=== PATIENT | female | born 1940 | race Caucasian/White ===

== ENCOUNTER 2018-08-24 17:34 | Inpatient (IN) ==
--- NOTE | 2018-08-24 17:56 | Emergency Department Note ---
Disposition Clinical Impression: Atrial fibrillation Qualifiers: Atrial fibrillation type: persistent Qualified Code(s): I48.1 - Persistent atrial fibrillation Disposition: Admitted As Inpatient Condition: Fair Referrals: Miranda Escobar MD [Primary Care Provider] - Forms: ED Satisfaction Letter Time of Disposition: 19:57 Arrhythmia/Palpitations HPI - General Chief Complaint: ED Arrhythmia/Palpitations Stated Complaint: atrial fib with rvr Time Seen by Provider: 08/24/18 17:44 Source: patient Mode of arrival: private vehicle Limitations: no limitations Nursing Notes Reviewed: Yes Vital Signs Reviewed: Yes - History of Present Illness HPI Narrative: Patient went to the urgent care because she had been feeling a little run down for the past several days. She noticed dyspnea with exertion but no shortness of breath at rest or when being supine. Shortly urgent care because it was again any better and they identified her as being atrial fibrillation. She denies noting any rapid heartbeat feeling or irregular heartbeat feeling. She denies any associated chest pain. Pt Subjective Complaint: rapid heart beat Onset (ago): day(s) (Several days) Duration: constant Context: occurred during rest Associated symptoms: Reports: shortness of breath (But only with exertion) Treatments prior to arrival: other (Seen at the urgent care and transferred here.) - Related Data Home Medications Medication Instructions Recorded Confirmed Estrogens,Esterified [Menest] 1.25 mg PO DAILY 08/24/18 08/24/18 Fluticasone Propionate Nasal 2 NS DAILY 08/24/18 [Flonase] Lisinopril [Zestril] 20 mg PO DAILY 08/24/18 08/24/18 Metoprolol Tartrate [Lopressor] 25 mg PO 08/24/18 Montelukast Sodium [Singulair] 10 mg PO DAILY 08/24/18 08/24/18 Potassium Chloride [Klor-Con] 20 meq PO 08/24/18 hydroCHLOROthiazide 25 mg PO DAILY 08/24/18 08/24/18 [Hydrochlorothiazide] Allergies Allergy/AdvReac Type Severity Reaction Status Date / Time No Known Allergies Allergy Verified 08/24/18 17:37 All systems ED: reviewed and negative except as stated. Constitutional: Denies: fever, chills ENT ED: Reports: congestion. Denies: ear pain, throat pain Cardiovascular: Reports: dyspnea on exertion. Denies: chest pain, palpitations, orthopnea, edema Respiratory: Denies: cough, wheezes Gastrointestinal: Denies: abdominal pain, nausea, vomiting Neurological: Denies: headache Past Medical History - Past Medical History Attestation: Yes The following information was validated with the patient. Source: patient, old records reviewed, nursing notes reviewed Medical history: Reports: hyperlipidemia, hypertension, renal disease, valvular heart disease Psychiatric history: Reports: no psych history - Social History Smoking Status: Never smoker Smokeless Tobacco Status: No Alcohol use: Reports: none, rarely Drug use: Reports: none Physical Exam - General Limitations: no limitations General appearance: alert, in no apparent distress - Head Head exam: atraumatic, normocephalic, normal inspection - Eye Eye exam: Present: normal appearance, PERRL, EOMI. Absent: scleral icterus, conjunctival injection - ENT ENT exam: normal exam, normal oropharynx, mucous membranes moist, TM's normal bilaterally, normal external ear exam - Neck Neck exam: Present: normal inspection, full ROM, trachea midline. Absent: meningismus - Chest Chest inspection: Present: normal inspection, symmetric chest wall rise. Absent: tenderness - Respiratory Respiratory exam: Present: normal lung sounds bilaterally. Absent: respiratory distress, wheezes - Cardiovascular Cardiovascular exam: Present: tachycardia, irregular rhythm. Absent: systolic murmur, diastolic murmur - Abdominal Exam Abdominal exam: Present: soft, Non-Tender, normal bowel sounds - Extremities Exam Extremities exam: Present: normal inspection. Absent: pedal edema - Neurological Exam Neurological exam: Present: alert, oriented X3 - Psychiatric Psychiatric exam: Present: normal affect, normal mood - Skin Skin exam: Present: warm, dry. Absent: rash Course Course Narrative: Patient presents with dyspnea on exertion and feeling rundown for couple of days. Found to be in atrial fibrillation with rapid ventricular response. We will get a workup going. We will start the Cardizem. Disposition will be based on diagnostic results and reevaluation. - Reevaluation(s) Reevaluation #1: Patient was given 2 boluses of Cardizem and is on a drip of 5 mg per hour. Heart rate is 99. Still in atrial fibrillation. Labs look good. I spoke with the hospitalist, Dr. Johnson. He recommended a dose of Xarelto and admit her to the floor maintaining the drip at 5. Patient is comfortable with the plan. Time: 19:56 Vital Signs Temperature 98.5 F 08/24/18 17:38 Pulse Rate 143 08/24/18 17:38 Respiratory Rate 19 08/24/18 17:38 Blood Pressure 140/93 08/24/18 17:38 O2 Sat by Pulse Oximetry 95 08/24/18 17:38 Temperature 98.5 F 08/24/18 17:38 Pulse Rate 72 08/24/18 19:54 Respiratory Rate 16 08/24/18 19:54 Blood Pressure 170/102 08/24/18 19:54 O2 Sat by Pulse Oximetry 97 08/24/18 19:54 Oxygen Delivery Oxygen Delivery Room Air Arrhythmia/Palpitations - Medical Records Medical records reviewed: Yes I reviewed the patient's medical records. - Lab Data Lab results reviewed: Yes I reviewed the patient's lab results. Result diagrams: 08/24/18 17:59 08/24/18 17:59 Lab Results 08/24/18 08/24/18 08/24/18 Range/Units 17:59 17:59 17:59 WBC 7.5 (4.3-11.1) K/mcL RBC 3.72 L (3.82-4.97) M/mcL Hgb 11.7 (11.5-15.4) g/dL Hct 35.5 (35.3-44.9) % MCV 95.4 (83.0-100.0) fL MCH 31.5 (28.0-33.3) pg MCHC 33.0 (31.6-35.5) g/dL RDW 14.1 (11.5-14.5) % Plt Count 258 (140-400) K/mcL MPV 10.7 (9.4-12.4) fL Immature Gran % 0.5 (0-4) % Seg Neutrophils % 64.6 % Lymphocytes % 24.0 % Monocytes % 8.3 % Eosinophils % 1.9 % Basophils % 0.7 % Neutrophils # 4.8 (1.6-8.9) K/mcL Lymphocytes # 1.8 (0.6-4.6) K/mcL Monocytes # 0.6 (0.0-1.3) K/mcL Eosinophils # 0.1 (0.0-0.6) K/mcL Basophils # 0.1 (0.0-0.2) K/mcL PT 11.8 (9.4-12.1) Seconds INR 1.0 APTT 32.7 (26.0-36.0) Seconds Sodium 139 (136-145) mEq/L Potassium 3.4 L (3.5-5.1) mEq/L Chloride 101 (98-107) mEq/L Carbon Dioxide 30 H (23-29) mEq/L BUN 37 H (8-23) mg/dL Creatinine 1.49 H (0.60-1.20) mg/dL Est GFR ( Amer) 41 L (> 60) Est GFR (Non-Af Amer) 34 L (> 60) BUN/Creatinine Ratio 25 (6-26) Glucose 130 H (70-105) mg/dL Calculated Osmolality 298 (280-300) Calcium 9.2 (8.6-10.3) mg/dL Troponin I < 0.03 (< 0.04) ng/mL B-Natriuretic Peptide (Less than 100) pg/mL 08/24/18 Range/Units 17:59 WBC (4.3-11.1) K/mcL RBC (3.82-4.97) M/mcL Hgb (11.5-15.4) g/dL Hct (35.3-44.9) % MCV (83.0-100.0) fL MCH (28.0-33.3) pg MCHC (31.6-35.5) g/dL RDW (11.5-14.5) % Plt Count (140-400) K/mcL MPV (9.4-12.4) fL Immature Gran % (0-4) % Seg Neutrophils % % Lymphocytes % % Monocytes % % Eosinophils % % Basophils % % Neutrophils # (1.6-8.9) K/mcL Lymphocytes # (0.6-4.6) K/mcL Monocytes # (0.0-1.3) K/mcL Eosinophils # (0.0-0.6) K/mcL Basophils # (0.0-0.2) K/mcL PT (9.4-12.1) Seconds INR APTT (26.0-36.0) Seconds Sodium (136-145) mEq/L Potassium (3.5-5.1) mEq/L Chloride (98-107) mEq/L Carbon Dioxide (23-29) mEq/L BUN (8-23) mg/dL Creatinine (0.60-1.20) mg/dL Est GFR ( Amer) (> 60) Est GFR (Non-Af Amer) (> 60) BUN/Creatinine Ratio (6-26) Glucose (70-105) mg/dL Calculated Osmolality (280-300) Calcium (8.6-10.3) mg/dL Troponin I (< 0.04) ng/mL B-Natriuretic Peptide 492 H (Less than 100) pg/mL - Radiology Data Radiology results reviewed: Yes I reviewed the patient's radiology results. - EKG Data EKG attestation: Yes I reviewed and interpreted this EKG. EKG results narrative: Twelve-lead EKG performed at 1736 PM. Ordered, reviewed and interpreted by ED physician shows atrial fibrillation at a rate of 152. Normal axis. Reasonable R wave progression across precordium. No obvious acute ischemic changes.
[2018-08-24 18:08] LABS: Basophils # 0.1 K/mcL (0.0-0.2); Basophils % 0.7 %; Eosinophils # 0.1 K/mcL (0.0-0.6); Eosinophils % 1.9 %; Hematocrit 35.5 % (35.3-44.9); Hemoglobin 11.7 g/dL (11.5-15.4); Immature Granulocytes % 0.5 % (0-4); Lymphocytes # 1.8 K/mcL (0.6-4.6); Mean Corpuscular Hemoglobin 31.5 pg (28.0-33.3); Mean Corpuscular Volume 95.4 fL (83.0-100.0); Mean Platelet Volume 10.7 fL (9.4-12.4); Monocytes # 0.6 K/mcL (0.0-1.3); Monocytes % 8.3 %; Neutrophils # 4.8 K/mcL (1.6-8.9); Platelet Count 258 K/mcL (140-400); Red Blood Count 3.72 M/mcL (3.82-4.97); Red Cell Distribution Width 14.1 % (11.5-14.5); Segmented Neutrophils % 64.6 %
[2018-08-24 18:17] LABS: Prothrombin Time 11.8 Seconds (9.4-12.1)
[2018-08-24 18:19] LABS: Activated Partial Thrombo Time 32.7 Seconds (26.0-36.0)
[2018-08-24 18:24] LABS: BUN/Creatinine Ratio 25 (6-26); Blood Urea Nitrogen 37 mg/dL (8-23); Calcium 9.2 mg/dL (8.6-10.3); Carbon Dioxide 30 mEq/L (23-29); Chloride 101 mEq/L (98-107); Glucose 130 mg/dL (70-105); Osmolality,Calculated 298 (280-300); Potassium 3.4 mEq/L (3.5-5.1); Sodium 139 mEq/L (136-145); eGFR For Non-African Americans 34 (> 60)
[2018-08-24 18:28] LABS: Troponin I < 0.03 ng/mL (< 0.04)
[2018-08-24] MEDS ORDERED: *HR* Rivaroxaban 10 MG TABLET PO STA ×2 (19:49→20:59)
[2018-08-24] MEDS ORDERED: Naloxone 0.4 MG/ML INJ IVP PRN (20:59)
[2018-08-24] MEDS: 0.9 % Sodium Chloride 1,000 ML IVC SCH (23:30)
[2018-08-25] MEDS ORDERED: *HR* Digoxin 0.5 MG/2 ML AMPUL IVP ONE (00:56)
[2018-08-25] MEDS ORDERED: hydroCHLOROthiazide 25 MG TABLET PO SCH (09:00)
[2018-08-25] MEDS: Lisinopril 20 MG TABLET PO SCH (09:40)
--- NOTE | 2018-08-25 11:57 | Internal Med History&Physical ---
Date of Encounter: 08/25/18 Time of Encounter: 11:20 Assessment and Plan (1) Atrial fibrillation Current visit: Yes Status: Acute Duration unknown but possibly of recent onset from reported symptoms. Echocardiogram will be done to further evaluate. Metoprolol dose will be increased and Lanoxin will be started. Cardizem drip will be discontinued. Qualifiers: Atrial fibrillation type: unspecified Qualified Code(s): I48.91 - Unspecified atrial fibrillation (2) Hypertension Current visit: Yes Status: Chronic Metoprolol dose will be increased 25 mg twice a day. Continue lisinopril. Continue HCTZ but reduce dose to 12.5 mg daily to avoid electrolyte imbalance. Qualifiers: Hypertension type: essential hypertension Qualified Code(s): I10 - Essential (primary) hypertension (3) Elevated brain natriuretic peptide (BNP) level Current visit: Yes Status: Acute Echocardiogram has been ordered. Increased metoprolol and continue lisinopril and HCTZ as per above. (4) Hypokalemia Current visit: Yes Status: Acute Likely secondary to HCTZ use. Supplemental potassium dose will be increased and HCTZ dose reduced. (5) Azotemia Current visit: Yes Status: Acute Possibly secondary to HCTZ use. Adjust dose as above. Internal Medicine - H&P: HPI Chief complaint: Dyspnea, irregular heart rate Admitted From: Emergency Dept Plans for Post Hospital Care: Home History of present illness: Ms. Raymond is a 78 year old female who was referred to emergency room from a local urgent care after presenting complaining of dyspnea onset approximately 10 days earlier. She denies any chest pain or significant cough. She had a sensation of irregular heartbeat on occasion. When her symptoms did not improve after several days she went to a local urgent care and was found to have atrial fibrillation. She had not had this diagnosis previously. She was directed to the emergency room and was found to have AF with RVR. She was started on IV Cardizem drip and admitted to [facility] floor. Cardiovascular history significant for hypertension. She denies GA heart failure angina DVT or pulmonary embolus. She has not missed any doses of Lopressor recently. Echocardiogram 01/05/2018 showed LVEF of 60% with indeterminate diastolic function. The interventricular septum and posterior wall thickness measurements were 1.20 and 0.94 cm respectively. There was LAE at 4.20 cm. There was mild aortic regurgitation, moderate mitral stenosis, mild mitral regurgitation, and mild tricuspid regurgitation. There was reported mild pulmonary hypertension without estimated RVSP recorded. She reports very rare alcohol consumption with her most recent intake 08/21/2018 of a single drink. She denies known thyroid disease or other unusual illnesses or medication ingestions. Past Med Surg Social Fam HX - Past Medical History Medical history: hyperlipidemia, hypertension, renal disease, valvular heart disease Psychiatric history: no psych history - Past Surgical History Additional surgical history: WISDOM TEETH - Social History Smoking Status: Never smoker Smokeless Tobacco Status: No Alcohol use: none, rarely Drug use: none Internal Medicine - H&P: Meds Estrogens,Esterified [Menest] 1.25 mg PO DAILY 08/24/18 [History] Fluticasone Propionate Nasal [Flonase] 2 NS DAILY 08/24/18 [History] Lisinopril [Zestril] 20 mg PO DAILY 08/24/18 [History] Metoprolol Tartrate [Lopressor] 25 mg PO 08/24/18 [History] Montelukast Sodium [Singulair] 10 mg PO DAILY 08/24/18 [History] Potassium Chloride [Klor-Con] 20 meq PO 08/24/18 [History] hydroCHLOROthiazide [Hydrochlorothiazide] 25 mg PO DAILY 08/24/18 [History] Allergy/AdvReac Type Severity Reaction Status Date / Time No Known Allergies Allergy Verified 08/24/18 17:37 All Systems PM: A 10-system review of systems was performed and is negative for pertinent findings except as documented above in the HPI. Review of systems: Gen.: She states her weight is been stable for several months Cardiovascular: As per history of present illness Respiratory: She is a lifelong nonsmoker and denies chronic lung disease. She has ASHLEY but cannot tolerate CPAP/BiPAP. She uses oxygen at bedtime. GI: She denies disorders of her liver gallbladder or exocrine pancreas : She denies hematuria dysuria or kidney stones Neurologic: She denies large distribution strokes or seizures. Endocrine: She denies diabetes thyroid disease or hyperlipidemia Hematology/oncology: She denies blood disorders cancers or anemia Psychiatric: She denies anxiety depression or other mental health issues [place] skeletal: She has DJD but denies gout or other bone joint or muscle disorders. - Constitutional Vitals: Temp Pulse Resp BP Pulse Ox 97.5 F L 97 18 143/83 98 08/25/18 06:35 08/25/18 10:12 08/25/18 06:35 08/25/18 10:12 08/25/18 09:49 Exam: Gen.: She is a well-developed obese female sitting in a recliner chair at bedside who appears in no acute distress HEENT: Head is atraumatic and normocephalic. Eyes: EOMI. There is no scleral icterus. Mouth: Mucosa is moist. Neck: Supple and nontender. There is no thyromegaly or adenopathy noted. Heart: Regular without murmurs gallops or ectopics Lungs: No wheezes or crackles are heard. Abdomen: Soft and nontender. No masses or guarding are noted. Extremities: There is no cyanosis edema or clubbing noted. Dorsalis pedis and posterior tibial pulses are trace to 1+ palpable bilaterally. Neurologic: Mental status: She is talkative and a good historian. Cranial nerves: Smile is symmetric. Forehead wrinkles bilaterally. Tongue protrudes midline. EOMI. Motor: There is no pronator drift. Cerebellar: Finger to nose is intact bilaterally. Skin: Warm and dry Internal Med - H&P Results - Labs CBC & Chem 7: 08/24/18 17:59 08/24/18 17:59 Labs: Short CBC 08/24/18 Range/Units 17:59 WBC 7.5 (4.3-11.1) K/mcL Hgb 11.7 (11.5-15.4) g/dL Hct 35.5 (35.3-44.9) % Plt Count 258 (140-400) K/mcL Neutrophils # 4.8 (1.6-8.9) K/mcL BMP 08/24/18 17:59 Sodium 139 Potassium 3.4 L Chloride 101 Carbon Dioxide 30 H BUN 37 H Creatinine 1.49 H Glucose 130 H Calcium 9.2 Cardiac Enzymes 08/24/18 Range/Units 17:59 Troponin I < 0.03 (< 0.04) ng/mL
[2018-08-25] MEDS: 0.9 % Sodium Chloride 1,000 ML IVC SCH (12:02)
[2018-08-25] MEDS: *HR* Digoxin 0.25 MG TABLET PO SCH (12:05)
[2018-08-25] MEDS: Apixaban 5 MG TABLET PO SCH (22:06)
[2018-08-26 06:31] LABS: Albumin 3.5 g/dL (3.5-5.7); Albumin/Globulin Ratio 1.3 (1.1-2.2); Bilirubin,Total 0.5 mg/dL (0.3-1.0); Calcium 8.6 mg/dL (8.6-10.3); Globulin 2.6 g/dL (2.4-3.5); Total Protein 6.1 g/dL (6.4-8.9)
[2018-08-26 06:43] LABS: Thyroid Stimulating Hormone 3.178 mcIU/mL (0.340-5.600)
[2018-08-26] MEDS ORDERED: hydroCHLOROthiazide 25 MG TABLET PO SCH (09:00)
[2018-08-26] MEDS: Apixaban 5 MG TABLET PO SCH ×2 (09:11→20:24)
[2018-08-26] MEDS: *HR* Digoxin 0.25 MG TABLET PO SCH (09:11)
[2018-08-26] MEDS: Lisinopril 20 MG TABLET PO SCH (09:11)
--- NOTE | 2018-08-26 09:39 | Electrocardiograph Report ---
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
--- NOTE | 2018-08-26 10:12 | Internal Med Progress Note ---
Date of Encounter: 08/26/18 Time of Encounter: 10:05 - Assessment and plan (1) Atrial fibrillation Current Visit: Yes Status: Acute Assessment and plan: August 26. Telemetry shows periodic slow conduction with persistent AF. Discon tinue Lanoxin and increase metoprolol. Qualifiers: Atrial fibrillation type: unspecified Qualified Code(s): I48.91 - Unspecified atrial fibrillation (2) Hypertension Current Visit: Yes Status: Chronic Assessment and plan: August 26. Increase metoprolol to 50 mg twice a day. Discontinue lisinopril, HCTZ, and KCl. Qualifiers: Hypertension type: essential hypertension Qualified Code(s): I10 - Essential (primary) hypertension (3) Elevated brain natriuretic peptide (BNP) level Current Visit: Yes Status: Acute Assessment and plan: August 26. Increase metoprolol as per above. Recheck BN peptide in a.m. She has Lasix at home that she uses prn. (4) Hypokalemia Current Visit: Yes Status: Acute Assessment and plan: August 26. Resolved. Discontinue potassium and diuretics. (5) Azotemia Current Visit: Yes Status: Acute Assessment and plan: August 26. Improved. Give gentle IV fluids and recheck labs in a.m. Anticipate discharge home tomorrow if stable. - Subjective Interval history: August 26. She has no new complaints. - Constitutional Vitals: Temp Pulse Resp BP Pulse Ox 97.6 F 113 14 145/76 99 08/26/18 06:42 08/26/18 08:57 08/26/18 06:42 08/26/18 08:57 08/26/18 08:57 Exam: She is sitting on the side of bed resting comfortably and appears in no acute distress. Her affect is bright and cheerful. I reviewed her medications and lab results. Internal Medicine: Result - Labs CBC & Chem 7: 08/24/18 17:59 08/26/18 05:58 Labs: BMP 08/26/18 05:58 Sodium 138 Potassium 4.0 Chloride 103 Carbon Dioxide 29 BUN 29 H Creatinine 1.22 H Glucose 99 Calcium 8.6 Liver Function 08/26/18 Range/Units 05:58 Total Bilirubin 0.5 (0.3-1.0) mg/dL AST 22 (13-39) Units/L ALT 58 H (7-52) Units/L Alkaline Phosphatase 95 (34-104) Units/L Albumin 3.5 (3.5-5.7) g/dL - ABG Interpretation ABG results: PT/INR, D-dimer PT 11.8 Seconds (9.4-12.1) 08/24/18 17:59 Consult Discharge Plan - Plan Referrals: Miranda Escobar MD [Primary Care Provider] - 1 week
[2018-08-27 06:36] LABS: Basophils # 0.1 K/mcL (0.0-0.2); Basophils % 0.9 %; Eosinophils # 0.5 K/mcL (0.0-0.6); Eosinophils % 6.5 %; Hematocrit 35.3 % (35.3-44.9); Hemoglobin 11.3 g/dL (11.5-15.4); Immature Granulocytes % 0.6 % (0-4); Lymphocytes % 25.3 %; Mean Corpuscular Hemoglobin 31.1 pg (28.0-33.3); Mean Corpuscular Volume 97.2 fL (83.0-100.0); Mean Platelet Volume 11.3 fL (9.4-12.4); Monocytes # 0.6 K/mcL (0.0-1.3); Neutrophils # 4.7 K/mcL (1.6-8.9); Platelet Count 238 K/mcL (140-400); Red Blood Count 3.63 M/mcL (3.82-4.97); Red Cell Distribution Width 14.6 % (11.5-14.5); Segmented Neutrophils % 59.7 %
[2018-08-27 06:51] LABS: Calcium 8.7 mg/dL (8.6-10.3); Potassium 3.9 mEq/L (3.5-5.1)
[2018-08-27 08:44] VITALS: BP 123/78
[2018-08-27] MEDS: Apixaban 5 MG TABLET PO SCH (08:45)
--- NOTE | 2018-08-27 11:30 | Discharge Summary ---
Date of Encounter: 08/27/18 Time of Encounter: 11:20 - Discharge Diagnosis (1) Atrial fibrillation Priority: Primary Status: Acute Qualifiers: Atrial fibrillation type: unspecified Qualified Code(s): I48.91 - Unspecified atrial fibrillation (2) Hypertension Priority: Secondary Status: Chronic Qualifiers: Hypertension type: essential hypertension Qualified Code(s): I10 - Essential (primary) hypertension (3) Elevated brain natriuretic peptide (BNP) level Priority: Secondary Status: Acute (4) Hypokalemia Priority: Secondary Status: Resolved (5) Azotemia Priority: Secondary Status: Acute Hospital course: Ms. Raymond is a 78 year old female who was referred to emergency room from a local urgent care after presenting complaining of dyspnea onset approximately 10 days earlier. She denies any chest pain or significant cough. She had a sensation of irregular heartbeat on occasion. When her symptoms did not improve after several days she went to a local urgent care and was found to have atrial fibrillation. She had not had this diagnosis previously. She was directed to the emergency room and was found to have AF with RVR. She was started on IV Cardizem drip and admitted to [facility]. Initial orders were written by the emergency room physician. I saw her on August 25 and performed the history and physical. Metoprolol dose was increased. Lanoxin was started and Cardizem drip was discontinued. Her ventricular rate returned to satisfactory range. Eliquis was started for CVA prophylaxis. When the AF slowed there was significant variability in rate. Lanoxin was discontinued and metoprolol was increased to control heart rate and improve blood pressure. Lisinopril and HCTZ were discontinued. Azotemia improved significantly with BUN and creatinine decreasing to 30 and 1.12 respectively by day of discharge with estimated GFR 47. BN peptide kyle slightly to 562. She reported she had Lasix at home and I told her she could use this as needed. Her PCP can further adjust medicines as needed. She will follow with her PCP Dr. Escobar within 1 week. - Time Spent with Patient Total time spent providing and/or coordinating discharge services: - Discharge Medications Prescriptions: New Apixaban [Eliquis] 5 mg PO BID #60 tablet Metoprolol [Lopressor] 50 mg PO BID tablet Continued Estrogens,Esterified [Menest] 1.25 mg PO DAILY Montelukast Sodium [Singulair] 10 mg PO DAILY Fluticasone Propionate Nasal [Flonase] 2 NS DAILY Discontinued Lisinopril [Zestril] 20 mg PO DAILY Metoprolol Tartrate [Lopressor] 25 mg PO Potassium Chloride [Klor-Con] 20 meq PO hydroCHLOROthiazide [Hydrochlorothiazide] 25 mg PO DAILY Home Medications: Estrogens,Esterified [Menest] 1.25 mg PO DAILY 08/24/18 [History] Fluticasone Propionate Nasal [Flonase] 2 NS DAILY 08/24/18 [History] Montelukast Sodium [Singulair] 10 mg PO DAILY 08/24/18 [History] Apixaban [Eliquis] 5 mg PO BID #60 tablet 08/27/18 [Rx] Metoprolol [Lopressor] 50 mg PO BID tablet 08/27/18 [Rx] Allergies/Adverse Reactions: Allergy/AdvReac Type Severity Reaction Status Date / Time No Known Allergies Allergy Verified 08/24/18 17:37 Date of admission: 08/25/18 12:06 Primary care physician: Miranda Escobar - Constitutional Vitals: Temp Pulse Resp BP Pulse Ox 97.6 F 70 18 123/78 98 08/26/18 22:00 08/27/18 08:44 08/27/18 04:00 08/27/18 08:44 08/26/18 22:00 - Patient Status Disposition: Home, Self-Care Condition: Fair - Discharge Instructions Follow Up With: Miranda Escobar MD [Primary Care Provider] - 1 week - Diet and Activity Activity: resume usual activities as tolerated Diet: advance to your usual diet
== END 2018-08-27 13:35 | disposition home or self-care (01) | DRG 309 ==
LOC: INPPIK 17:34 → EMEROOPIK 17:34 → INPPIK 20:47
PROVIDERS: ADMIT Internal Medicine; ATTEND Internal Medicine

== ENCOUNTER 2018-11-17 13:06 | Inpatient (IN) ==
[2018-11-17] MEDS ORDERED: Bumetanide 1 MG/4 ML VIAL IVP ONE (13:19)
--- NOTE | 2018-11-17 13:21 | Emergency Department Note ---
Disposition Clinical Impression: Atrial fibrillation, Diastolic CHF Disposition: Admitted As Inpatient Condition: Fair Referrals: Miranda Escobar MD [Primary Care Provider] - Forms: ED Satisfaction Letter, Work/School Release Time of Disposition: 15:14 (leo) SOB HPI - General Chief Complaint: ED General Medical Stated Complaint: weakness x 2 days Time Seen by Provider: 11/17/18 13:22 Source: patient, EMS Mode of arrival: EMS Limitations: no limitations Nursing Notes Reviewed: Yes Vital Signs Reviewed: Yes - History of Present Illness 78-year-old who presents to the emergency room's any increasing shortness of breath and activity patient is having swelling and edema in the extremities 2-3+ in size states that she is short of breath with activity she apparently called EMS yesterday at about asked that she dropped a cane but refuses transfer to the hospital at that time. She denies any blurred vision double vision loss vision. States she has dyspnea with activity dyspnea with exertion. She denies any chest pain but has chest pressure feels like she is smothering. She denies blurred vision double vision loss vision. She states I am only been this way since July ever since a head atrial fib. She denies though that she is in atrial fib at this time. She denies any cough or congestion she denies any diarrhea melena hematochezia hematemesis. All systems reviewed and are otherwise negative Patient appears to be very disgruntled argumentative refusing appropriate management and treatment of her initially when she presents here to the emergency room despite staff talking to her she is not willing to listen or answer questions appropriately We did contact the daughter who tells us that she has had some confusion and she has had increasing dyspnea and shortness of breath is diagnosed with atrial fib and July and has had complications since then Please note the patient tells us that her telling her how much Lasix to take she is been told to [address] Blackmon at her therapist's is been telling her only to take 10 Pt Subjective Complaint: shortness of breath Onset (ago): day(s) Context: other (hx of CHF) Severity: severe Consistency/Duration: gradually worsening Improves with: rest, upright position Worsens with: exertion, movement Known history of: congestive heart failure, other (atrial fib) Associated symptoms: Reports: wheezing, orthopnea, palpitations. Denies: chest pain, pain with inspiration, fever, cough, sputum production, lower extremity pain, polyuria, polydipsia, parasthesias, hemoptysis, diaphoresis, nausea/vomiting, syncope, abdominal pain, rash, sense of impending doom Treatment prior to arrival: diuretics Cough present: No Sputum production: No - Related Data Home Medications Medication Instructions Recorded Confirmed Fluticasone Propionate Nasal 2 spr NS DAILY PRN 10/06/18 11/17/18 [Flonase] Metoprolol [Lopressor] 25 mg PO HS 10/06/18 11/17/18 Montelukast [Singulair] 10 mg PO HS 10/06/18 11/17/18 Potassium Chloride 20 meq PO DAILY 10/06/18 11/17/18 Diltiazem CD (24hr) [Cardizem CD] 120 mg PO DAILY 11/17/18 11/17/18 Estrogens,Esterified [Menest] 1.25 mg PO DAILY 11/17/18 11/17/18 Furosemide [Lasix] 10 mg PO DAILY 11/17/18 11/17/18 Previous Rx's Medication Instructions Recorded Lisinopril [Zestril] 2.5 mg PO DAILY #7 tablet 10/09/18 Allergies Allergy/AdvReac Type Severity Reaction Status Date / Time apixaban [From Eliquis] AdvReac BLEEDING Verified 10/06/18 14:10 aspirin AdvReac Nose Bleed Verified 10/05/18 19:42 NSAIDS (Non-Steroidal AdvReac Nose Bleed Verified 10/05/18 19:42 Anti-Inflamma All systems ED: reviewed and negative except as stated. Review of Systems: As Per HPI Constitutional: Reports: weakness. Denies: fever, chills Eyes: Denies: eye pain, eye discharge ENT ED: Denies: ear pain, throat pain, dental pain Cardiovascular: Reports: palpitations, dyspnea on exertion, orthopnea, edema, paroxysmal nocturnal dyspnea. Denies: chest pain Respiratory: Denies: cough, dyspnea, wheezes Gastrointestinal: Denies: abdominal pain, nausea, vomiting Genitourinary: Denies: urgency, dysuria, frequency Musculoskeletal: Denies: back pain, neck pain Integumentary: Denies: rash, abrasion Neurological: Denies: headache, weakness Psychiatric: Denies: anxiety, depression Endocrine: Reports: fatigue Hematological/Lymphatic: Denies: easy bleeding Allergic/Immunologic: Denies: facial swelling Past Medical History - Past Medical History Attestation: Yes The following information was validated with the patient. Source: patient, old records reviewed, obtained from family, nursing notes reviewed Medical history: Reports: atrial fibrillation, CHF, hyperlipidemia, hypertension, renal disease, valvular heart disease Psychiatric history: Reports: no psych history - Social History Smoking Status: Never smoker Smokeless Tobacco Status: No Alcohol use: Reports: none, rarely Drug use: Reports: none Physical Exam - General Limitations: no limitations General appearance: alert, anxious, obese - Head Head exam: atraumatic, normocephalic, normal inspection - Eye Eye exam: Present: normal appearance, PERRL, EOMI - ENT ENT exam: normal exam, normal oropharynx, mucous membranes moist, TM's normal bilaterally, normal external ear exam - Neck Neck exam: Present: normal inspection, full ROM, trachea midline - Chest Chest inspection: Present: normal inspection, symmetric chest wall rise, other (A she was then noted to have edema in the lower dependent portions of the breast extending up across the anterior chest wall PA the large abdominal area extending into the carotid artery down into the legs she has to 3+ edema in the chest wall blown and 3+4+ edema in the legs she has got 3-4+ edema buttock area) - Respiratory Respiratory exam: Present: normal lung sounds bilaterally, other (crackles in the bases) - Cardiovascular Cardiovascular exam: Present: tachycardia, irregular rhythm - Abdominal Exam Abdominal exam: Present: soft, Non-Tender, other. Absent: mass, pulsatile mass - Expanded Upper Extremity Exam Shoulder exam: Present: normal inspection, full ROM Arm exam: Present: normal inspection, full ROM Elbow exam: Present: normal inspection, full ROM Forearm/Wrist exam: Present: normal inspection, full ROM Hand exam: Present: normal inspection, full ROM Vascular exam: Normal: capillary refill, radial pulse - Expanded Lower Extremity Exam Hip/Pelvis exam: Present: normal inspection, full ROM, swelling Upper leg exam: Present: normal inspection, full ROM, swelling Knee exam: Present: normal inspection, full ROM, swelling Lower leg exam: Present: normal inspection, full ROM, swelling Ankle exam: Present: normal inspection, full ROM, swelling Foot/toe exam: Present: normal inspection, full ROM, swelling Neurovascular/Tendon exam: Present: normal capillary refill, normal fine/light touch. Absent: motor deficit, sensory deficit, tendon deficit Gait: other (Weight transfer only) - Back Exam Back exam: Present: normal inspection, full ROM. Absent: muscle spasm - Neurological Exam Neurological exam: Present: alert, oriented X3, CN II-XII intact, normal gait - Psychiatric Psychiatric exam: Present: normal affect, normal mood - Skin Skin exam: Present: warm, dry, intact, normal color Course Course Narrative: Patient presented emergency room initially she is very argumentative very almost verbally belligerent with myself and staff demanding what was going to be done that she was going on take oral medications is apparent that the patient was in cardiac arrhythmia and this is precipitated the event she appeared to be consistent almost with what was atrial fib with RVR patient was given a bolus of Cardizem and patient would not allow appropriate blood pressures except for on her forearm patient was demanding only to use the bedside commode even though she was complaining of being profoundly weak as result staff state at bedside when she did wait transverse to the bedside commode she was given Cardizem and the patient was ultimately admitted with congestive heart failure and peripheral edema secondary most likely to be atrial fib patient be admitted for observation and consult social services technician for discharge planning I did speak to the patient's daughter - Consultations Consultation #1: Daughter Genny [phone] Vital Signs Temperature 97.4 F L 11/17/18 13:22 Pulse Rate 121 11/17/18 13:22 Respiratory Rate 81 11/17/18 13:22 Blood Pressure 128/99 11/17/18 13:22 O2 Sat by Pulse Oximetry 97 11/17/18 13:22 Temperature 97.4 F L 11/17/18 13:22 Pulse Rate 118 11/17/18 15:12 Respiratory Rate 17 11/17/18 15:12 Blood Pressure 132/99 11/17/18 15:12 O2 Sat by Pulse Oximetry 98 11/17/18 15:12 Oxygen Delivery Oxygen Delivery Room Air Shortness of Breath/Dyspnea - Differential Diagnosis Likely: congestive heart failure, arrhythmia - Medical Records Medical records reviewed: Yes I reviewed the patient's medical records. - Lab Data Lab results reviewed: Yes I reviewed the patient's lab results. Result diagrams: 11/17/18 14:06 11/17/18 14:06 Lab Results 0711/17/18 11/17/18 Range/Units 14:06 14:06 14:06 WBC 9.8 (4.3-11.1) K/mcL RBC 4.28 (3.82-4.97) M/mcL Hgb 13.2 (11.5-15.4) g/dL Hct 41.6 (35.3-44.9) % MCV 97.2 (83.0-100.0) fL MCH 30.8 (28.0-33.3) pg MCHC 31.7 (31.6-35.5) g/dL RDW 16.1 H (11.5-14.5) % Plt Count 227 (140-400) K/mcL MPV 11.8 (9.4-12.4) fL Immature Gran % 0.5 (0-4) % Seg Neutrophils % 67.7 % Lymphocytes % 17.8 % Monocytes % 12.8 % Eosinophils % 0.4 % Basophils % 0.8 % Neutrophils # 6.6 (1.6-8.9) K/mcL Lymphocytes # 1.7 (0.6-4.6) K/mcL Monocytes # 1.3 (0.0-1.3) K/mcL Eosinophils # 0.0 (0.0-0.6) K/mcL Basophils # 0.1 (0.0-0.2) K/mcL Nucleated RBCs/100 WBC 0.3 H (0) /100 WBC PT 15.7 H (9.4-12.1) Seconds INR 1.4 APTT 29.2 (26.0-36.0) Seconds Sodium 139 (136-145) mEq/L Potassium 5.1 (3.5-5.1) mEq/L Chloride 105 (98-107) mEq/L Carbon Dioxide 24 (23-29) mEq/L BUN 56 H (8-23) mg/dL Creatinine 1.85 H (0.60-1.20) mg/dL Est GFR ( Amer) 32 L (> 60) Est GFR (Non-Af Amer) 27 L (> 60) BUN/Creatinine Ratio 30 H (6-26) Glucose 129 H (70-105) mg/dL Calculated Osmolality 305 H (280-300) Calcium 9.4 (8.6-10.3) mg/dL Magnesium 2.2 (1.6-2.6) mg/dL Total Bilirubin 1.0 (0.3-1.0) mg/dL AST 40 H (13-39) Units/L ALT 38 (7-52) Units/L Alkaline Phosphatase 90 (34-104) Units/L Troponin I 0.04 H* (< 0.04) ng/mL B-Natriuretic Peptide (Less than 100) pg/mL Serum Total Protein 6.1 L (6.4-8.9) g/dL Albumin 3.2 L (3.5-5.7) g/dL Globulin 2.9 (2.4-3.5) g/dL Albumin/Globulin Ratio 1.1 (1.1-2.2) 11/17/18 Range/Units 14:06 WBC (4.3-11.1) K/mcL RBC (3.82-4.97) M/mcL Hgb (11.5-15.4) g/dL Hct (35.3-44.9) % MCV (83.0-100.0) fL MCH (28.0-33.3) pg MCHC (31.6-35.5) g/dL RDW (11.5-14.5) % Plt Count (140-400) K/mcL MPV (9.4-12.4) fL Immature Gran % (0-4) % Seg Neutrophils % % Lymphocytes % % Monocytes % % Eosinophils % % Basophils % % Neutrophils # (1.6-8.9) K/mcL Lymphocytes # (0.6-4.6) K/mcL Monocytes # (0.0-1.3) K/mcL Eosinophils # (0.0-0.6) K/mcL Basophils # (0.0-0.2) K/mcL Nucleated RBCs/100 WBC (0) /100 WBC PT (9.4-12.1) Seconds INR APTT (26.0-36.0) Seconds Sodium (136-145) mEq/L Potassium (3.5-5.1) mEq/L Chloride (98-107) mEq/L Carbon Dioxide (23-29) mEq/L BUN (8-23) mg/dL Creatinine (0.60-1.20) mg/dL Est GFR ( Amer) (> 60) Est GFR (Non-Af Amer) (> 60) BUN/Creatinine Ratio (6-26) Glucose (70-105) mg/dL Calculated Osmolality (280-300) Calcium (8.6-10.3) mg/dL Magnesium (1.6-2.6) mg/dL Total Bilirubin (0.3-1.0) mg/dL AST (13-39) Units/L ALT (7-52) Units/L Alkaline Phosphatase (34-104) Units/L Troponin I (< 0.04) ng/mL B-Natriuretic Peptide 658 H (Less than 100) pg/mL Serum Total Protein (6.4-8.9) g/dL Albumin (3.5-5.7) g/dL Globulin (2.4-3.5) g/dL Albumin/Globulin Ratio (1.1-2.2) - Radiology Data Radiology results reviewed: Yes I reviewed the patient's radiology results. ITS Impressions Chest X-Ray 11/17/18 13:19 IMPRESSION: Vascular congestion. D/ / Williams Figueroa MD / Williams Figueroa MD Interpreting Provider: Williams Figueroa MD - EKG Data EKG attestation: Yes I reviewed and interpreted this EKG. EKG results narrative: Heart rate 163 NV unable to calculate QRS 76 QT 304 axis [id number] atrophic with RVR Critical Care Time Critical Care Time: Yes Total Critical Care Time: 45 Attestation: I probability clinically significant life any deteriorations patient condition as result the patient being in atrial fib with RVR which that she throwing her into a secondary congestive heart failure which is then causing her pulmonary edema which is mostly contributed to her factors of weakness and shortness of breath discussion with Dr. Johnson for admission
[2018-11-17 14:18] LABS: Basophils # 0.1 K/mcL (0.0-0.2); Basophils % 0.8 %; Eosinophils % 0.4 %; Hematocrit 41.6 % (35.3-44.9); Hemoglobin 13.2 g/dL (11.5-15.4); Immature Granulocytes % 0.5 % (0-4); Lymphocytes # 1.7 K/mcL (0.6-4.6); Lymphocytes % 17.8 %; Mean Corpuscular HGB Conc 31.7 g/dL (31.6-35.5); Mean Corpuscular Hemoglobin 30.8 pg (28.0-33.3); Mean Corpuscular Volume 97.2 fL (83.0-100.0); Mean Platelet Volume 11.8 fL (9.4-12.4); Monocytes # 1.3 K/mcL (0.0-1.3); Monocytes % 12.8 %; Neutrophils # 6.6 K/mcL (1.6-8.9); Nucleated Red Blood Cells 0.3 /100 WBC (0); Platelet Count 227 K/mcL (140-400); Red Blood Count 4.28 M/mcL (3.82-4.97); Red Cell Distribution Width 16.1 % (11.5-14.5); Segmented Neutrophils % 67.7 %; White Blood Count 9.8 K/mcL (4.3-11.1)
[2018-11-17 14:23] LABS: INR 1.4; Prothrombin Time 15.7 Seconds (9.4-12.1)
[2018-11-17 14:26] LABS: Activated Partial Thrombo Time 29.2 Seconds (26.0-36.0)
[2018-11-17 14:34] LABS: Albumin 3.2 g/dL (3.5-5.7); Albumin/Globulin Ratio 1.1 (1.1-2.2); Calcium 9.4 mg/dL (8.6-10.3); Globulin 2.9 g/dL (2.4-3.5); Magnesium 2.2 mg/dL (1.6-2.6); Potassium 5.1 mEq/L (3.5-5.1); Total Protein 6.1 g/dL (6.4-8.9)
[2018-11-17 14:55] LABS: Troponin I 0.04 ng/mL (< 0.04)
[2018-11-17] MEDS ORDERED: Ondansetron 4 MG/2 ML VIAL IVP PRN (16:23)
[2018-11-17] MEDS ORDERED: Naloxone 0.4 MG/ML INJ IVP PRN (16:23)
[2018-11-17] MEDS ORDERED: 0.9 % Sodium Chloride 250 ML ONE (18:11)
--- NOTE | 2018-11-17 20:26 | Internal Med History&Physical ---
Date of Encounter: 11/17/18 Time of Encounter: 19:55 Assessment and Plan (1) Heart failure with reduced ejection fraction and diastolic dysfunction Current visit: No Status: Acute She will be started on oral Bumex 1 mg daily. Lasix will be discontinued. Lanoxin will also be given to slow ventricular rate and possibly learning support assistant heart failure. (2) CKD (chronic kidney disease) stage 3, GFR 30-59 ml/min Current visit: Yes Status: Chronic Monitor renal indices. (3) Atrial fibrillation Current visit: Yes Status: Chronic She will be given Lanoxin to slow ventricular rate. Cardizem drip will be discontinued and higher dose oral Cardizem started. Metoprolol will be continued. Gentle IV hydration will be given since she appears to have acute on chronic renal insufficiency. Qualifiers: Atrial fibrillation type: chronic Qualified Code(s): I48.2 - Chronic atrial fibrillation (4) Hypertension Current visit: No Status: Chronic Continue metoprolol and start higher dose diltiazem. Qualifiers: Hypertension type: essential hypertension Qualified Code(s): I10 - Essential (primary) hypertension Internal Medicine - H&P: HPI Chief complaint: Dyspnea Admitted From: Emergency Dept Plans for Post Hospital Care: Home History of present illness: Ms. Raymond is a 78 year old female who came to emergency room complaining of 3 day history of increased dyspnea with cough productive of yellow sputum. She had sensation of chills but denies fevers vomiting or diarrhea. She was evaluated in emergency room and was found to have atrial fibrillation with RVR and evidence of heart failure. She was admitted to [facility] floor for ongoing care needs. Cardiovascular history is significant for atrial fibrillation documented since August 2018 during hospitalization at [facility]. She was placed on Eliquis for CVA prophylaxis at discharge but states she developed GI bleed and Eliquis was discontinued a few days after initiation. During a September 2018 hospitalization at [facility] she had evaluation by pathology transcriptionist who discussed restarting OAC but she declined understanding the risks/benefits. She was also discharged August 2018 on higher dose metoprolol but states her heart rate and/or blood pressure became too low so dose was reduced back to 25 mg at bedtime. Echocardiogram 10/06/2018 showed LVEF of 40-45%. There was indeterminate diastolic function assessment due to atrial fibrillation. There was moderate mitral stenosis, mild mitral regurgitation, [id number] tricuspid regurgitation, and mild to moderate pulmonary hypertension without estimated RVSP recorded. Interventricular septum and posterior wall thickness measurements were 1.06 and 0.74 cm respectively. There was LAE at 4.10 cm. She has history of hypertension but denies AK angina DVT or pulmonary embolus. Past Med Surg Social Fam HX - Past Medical History Medical history: atrial fibrillation, CHF, hyperlipidemia, hypertension, renal disease, valvular heart disease Additional medical history: WEARS HOME 02 AT 2LPM VIA [place] Psychiatric history: no psych history - Past Surgical History Additional surgical history: WISDOM TEETH - Social History Smoking Status: Never smoker Smokeless Tobacco Status: No Alcohol use: occasionally Drug use: none - Family History Father Living Status: Hx Family Cardiac Disorders: Yes Internal Medicine - H&P: Meds Fluticasone Propionate Nasal [Flonase] 2 spr NS DAILY PRN 10/06/18 [History] Metoprolol [Lopressor] 25 mg PO HS 10/06/18 [History] Montelukast [Singulair] 10 mg PO HS 10/06/18 [History] Potassium Chloride 20 meq PO DAILY 10/06/18 [History] Lisinopril [Zestril] 2.5 mg PO DAILY #7 tablet 10/09/18 [Rx] Diltiazem CD (24hr) [Cardizem CD] 120 mg PO DAILY 11/17/18 [History] Estrogens,Esterified [Menest] 1.25 mg PO DAILY 11/17/18 [History] Furosemide [Lasix] 10 mg PO DAILY 11/17/18 [History] Allergy/AdvReac Type Severity Reaction Status Date / Time apixaban [From Eliquis] AdvReac BLEEDING Verified 10/06/18 14:10 aspirin AdvReac Nose Bleed Verified 10/05/18 19:42 NSAIDS (Non-Steroidal AdvReac Nose Bleed Verified 10/05/18 19:42 Anti-Inflamma All Systems PM: A 10-system review of systems was performed and is negative for pertinent findings except as documented above in the HPI. Review of systems: Review of systems from her August 2018 [facility] hospitalization were reviewed and revised as below. Gen.: Her weight has increased from 108.862 kg on 08/24/2018 to 115.666 kg at present. Cardiovascular: As per history of present illness Respiratory: She is a lifelong nonsmoker and denies chronic lung disease. She has ASHLEY but cannot tolerate CPAP/BiPAP. She uses oxygen at bedtime. GI: She denies disorders of her liver gallbladder or exocrine pancreas : She denies hematuria dysuria or kidney stones. She has chronic kidney disease stage 3-4 Neurologic: She denies large distribution strokes or seizures. Endocrine: She denies diabetes thyroid disease or hyperlipidemia Hematology/oncology: She denies blood disorders cancers or anemia Psychiatric: She denies anxiety depression or other mental health issues [place] skeletal: She has DJD but denies gout or other bone joint or muscle disorders. - Constitutional Vitals: Temp Pulse Resp BP Pulse Ox 97.4 F L 131 17 135/87 100 11/17/18 18:52 11/17/18 19:30 11/17/18 18:52 11/17/18 20:10 11/17/18 18:52 Exam: Gen.: She is a well-developed morbidly obese female sitting on the side of bed who appears in no severe distress. She states her dyspnea has lessened since emergency room. HEENT: Head is atraumatic and normocephalic. Eyes: EOMI. There is no scleral icterus. Mouth: Mucosa is moist. Neck: Supple and nontender. There is no thyromegaly or adenopathy noted. Heart: Irregularly irregular without murmurs or gallops Lungs: No wheezes or crackles are heard. Abdomen: She has a large abdomen. It is nontender to palpation. Exam is limited because she is in the seated position. Extremities: She has venous stasis erythema of her lower legs bilaterally. There is a shallow ulcer approximately 1 cm diameter with slight serous drainage in the midportion of the left anterior medial khan area. Dorsalis pedis and posterior tibial pulses are not palpated. She has 1-2+ edema of the dorsum of feet and lower legs bilaterally. Neurologic: Mental status: She is talkative and a good historian. Cranial nerves: Smile is symmetric. Forehead wrinkles bilaterally. Tongue protrudes midline. EOMI. Motor: There is no pronator drift. Cerebellar: Finger to nose is intact bilaterally. Skin: Warm and dry Internal Med - H&P Results - Labs CBC & Chem 7: 11/17/18 14:06 11/17/18 14:06 Labs: Short CBC 11/17/18 Range/Units 14:06 WBC 9.8 (4.3-11.1) K/mcL Hgb 13.2 (11.5-15.4) g/dL Hct 41.6 (35.3-44.9) % Plt Count 227 (140-400) K/mcL Neutrophils # 6.6 (1.6-8.9) K/mcL BMP 11/17/18 14:06 Sodium 139 Potassium 5.1 Chloride 105 Carbon Dioxide 24 BUN 56 H Creatinine 1.85 H Glucose 129 H Calcium 9.4 Cardiac Enzymes 11/17/18 Range/Units 14:06 Troponin I 0.04 H* (< 0.04) ng/mL Liver Function 11/17/18 Range/Units 14:06 Total Bilirubin 1.0 (0.3-1.0) mg/dL AST 40 H (13-39) Units/L ALT 38 (7-52) Units/L Alkaline Phosphatase 90 (34-104) Units/L Albumin 3.2 L (3.5-5.7) g/dL - Impressions ITS Impressions Chest X-Ray 11/17/18 13:19 IMPRESSION: Vascular congestion. D/ / Williams Figueroa MD / Williams Figueroa MD Interpreting Provider: Williams Figueroa MD
[2018-11-17] MEDS ORDERED: *HR* Digoxin 0.5 MG/2 ML AMPUL IVP ONE (20:41)
[2018-11-17] MEDS: Diltiazem CD (24hr) 240 MG CAPSULE PO SCH (22:06)
[2018-11-18] MEDS: Bumetanide 1 MG TABLET PO SCH (09:20)
[2018-11-18] MEDS: Diltiazem CD (24hr) 240 MG CAPSULE PO SCH (09:20)
--- NOTE | 2018-11-18 11:12 | Internal Med Progress Note ---
Date of Encounter: 11/18/18 Time of Encounter: 11:00 - Assessment and plan (1) Heart failure with reduced ejection fraction and diastolic dysfunction Current Visit: No Status: Acute Assessment and plan: November 18. Continue Bumex and Lanoxin. She agreed to venipuncture tomorrow. (2) CKD (chronic kidney disease) stage 3, GFR 30-59 ml/min Current Visit: Yes Status: Chronic Assessment and plan: November 18. Monitor renal indices. (3) Atrial fibrillation Current Visit: Yes Status: Chronic Assessment and plan: November 18. Rate now controlled. Continue Lanoxin, metoprolol, and Cardizem. She declines OAC. Qualifiers: Atrial fibrillation type: chronic Qualified Code(s): I48.2 - Chronic atrial fibrillation (4) Hypertension Current Visit: No Status: Chronic Assessment and plan: November 18. Continue metoprolol and higher dose diltiazem. Qualifiers: Hypertension type: essential hypertension Qualified Code(s): I10 - Essential (primary) hypertension - Subjective Interval history: November 18. She has no new complaints. She denies dyspnea or pain. She refused venipuncture this morning stating "I do not have good veins". - Constitutional Vitals: Temp Pulse Resp BP Pulse Ox 98.2 F 69 18 127/62 97 11/18/18 06:41 11/18/18 06:41 11/18/18 06:41 11/18/18 06:41 11/18/18 06:41 Exam: She is resting comfortably in bed and appears in no acute distress. She answers questions appropriately but is not conversational. Heart is irregularly irregular with rate approximately 80/m. Lungs are clear anteriorly. Extremities showed decreased edema. I reviewed her medications and past lab results. Internal Medicine: Result - Labs CBC & Chem 7: 11/17/18 14:06 11/17/18 14:06 Labs: Short CBC 11/17/18 Range/Units 14:06 WBC 9.8 (4.3-11.1) K/mcL Hgb 13.2 (11.5-15.4) g/dL Hct 41.6 (35.3-44.9) % Plt Count 227 (140-400) K/mcL Neutrophils # 6.6 (1.6-8.9) K/mcL BMP 11/17/18 14:06 Sodium 139 Potassium 5.1 Chloride 105 Carbon Dioxide 24 BUN 56 H Creatinine 1.85 H Glucose 129 H Calcium 9.4 Cardiac Enzymes 11/17/18 Range/Units 14:06 Troponin I 0.04 H* (< 0.04) ng/mL Liver Function 11/17/18 Range/Units 14:06 Total Bilirubin 1.0 (0.3-1.0) mg/dL AST 40 H (13-39) Units/L ALT 38 (7-52) Units/L Alkaline Phosphatase 90 (34-104) Units/L Albumin 3.2 L (3.5-5.7) g/dL - ABG Interpretation ABG results: PT/INR, D-dimer PT 15.7 Seconds (9.4-12.1) H 11/17/18 14:06 - Impressions Impressions Chest X-Ray 11/17/18 13:19 IMPRESSION: Vascular congestion. D/ / Williams Figueroa MD / Williams Figueroa MD Interpreting Provider: Williams Figueroa MD Consult Discharge Plan - Plan Referrals: Miranda Escobar MD [Primary Care Provider] - 1 week
[2018-11-18] MEDS: *HR* Digoxin 0.125 MG TABLET PO SCH (11:32)
[2018-11-18] MEDS ORDERED: Acetaminophen 325 MG TABLET PO PRN (19:45)
[2018-11-19] MEDS: *HR* Digoxin 0.125 MG TABLET PO SCH (09:53)
[2018-11-19] MEDS: Bumetanide 1 MG TABLET PO SCH (09:53)
[2018-11-19] MEDS: Diltiazem CD (24hr) 240 MG CAPSULE PO SCH (09:53)
--- NOTE | 2018-11-19 12:06 | Internal Med Progress Note ---
Date of Encounter: 11/19/18 Time of Encounter: 11:55 - Assessment and plan (1) Heart failure with reduced ejection fraction and diastolic dysfunction Current Visit: No Status: Acute Assessment and plan: November 18. Continue Bumex and Lanoxin. She agreed to venipuncture tomorrow. (2) CKD (chronic kidney disease) stage 3, GFR 30-59 ml/min Current Visit: Yes Status: Chronic Assessment and plan: November 18. Monitor renal indices. (3) Atrial fibrillation Current Visit: Yes Status: Chronic Assessment and plan: November 18. Rate now controlled. Continue Lanoxin, metoprolol, and Cardizem. She declines OAC. November 19. Rate remains controlled. Decrease Lanoxin to avoid toxicity with chronic kidney disease. Continue metoprolol and Cardizem. Qualifiers: Atrial fibrillation type: chronic Qualified Code(s): I48.2 - Chronic atrial fibrillation (4) Hypertension Current Visit: No Status: Chronic Assessment and plan: November 18. Continue metoprolol and higher dose diltiazem. Qualifiers: Hypertension type: essential hypertension Qualified Code(s): I10 - Essential (primary) hypertension (5) Weakness Current Visit: Yes Status: Acute Assessment and plan: November 19. PT and OT consults will be ordered - Subjective Interval history: November 18. She has no new complaints. She denies dyspnea or pain. She refused venipuncture this morning stating "I do not have good veins". November 19. She has no new complaints and feels better. After conversation with her daughter she is agreeable to go to a local SNF for rehabilitation therapy for a couple weeks. She reports 2 venipuncture attempts this morning were unsuccessful and she would not allow additional ones. - Constitutional Vitals: Temp Pulse Resp BP Pulse Ox 97.8 F 80 18 126/81 95 11/19/18 11:32 11/19/18 11:32 11/19/18 11:32 11/19/18 11:32 11/19/18 11:32 Exam: She is sitting on the side of bed resting comfortably. Her affect is cheerful. She is appropriate in conversation. Heart is irregularly irregular. Lungs are clear. Extremities show 1+ edema bilaterally. She has venous stasis changes of her lower legs. I reviewed her medications. Internal Medicine: Result - Labs CBC & Chem 7: 11/17/18 14:06 11/17/18 14:06 - ABG Interpretation ABG results: PT/INR, D-dimer PT 15.7 Seconds (9.4-12.1) H 11/17/18 14:06 Consult Discharge Plan - Plan Referrals: Miranda Escobar MD [Primary Care Provider] - 1 week
[2018-11-20 06:49] VITALS: BP 109/61
[2018-11-20] MEDS: Diltiazem CD (24hr) 240 MG CAPSULE PO SCH (08:46)
[2018-11-20] MEDS: Bumetanide 1 MG TABLET PO SCH (08:47)
[2018-11-20] MEDS ORDERED: Fluticasone Propionate Nasal 50 MCG/SPRAY BOTTLE NS SCH (09:00)
--- NOTE | 2018-11-20 09:15 | Discharge Summary ---
Date of Encounter: 11/20/18 Time of Encounter: 09:04 - Discharge Diagnosis (1) Atrial fibrillation with RVR Priority: Primary Status: Acute (2) Heart failure with reduced ejection fraction and diastolic dysfunction Priority: Secondary Status: Acute (3) CKD (chronic kidney disease) stage 3, GFR 30-59 ml/min Priority: Secondary Status: Chronic (4) Atrial fibrillation Priority: Secondary Status: Chronic Qualifiers: Atrial fibrillation type: chronic Qualified Code(s): I48.2 - Chronic atrial fibrillation (5) Hypertension Priority: Secondary Status: Chronic Qualifiers: Hypertension type: essential hypertension Qualified Code(s): I10 - Essential (primary) hypertension (6) Weakness Priority: Secondary Status: Acute Hospital course: Ms. Raymond is a 78 year old female who came to emergency room complaining of 3 day history of increased dyspnea with cough productive of yellow sputum. She had sensation of chills but denies fevers vomiting or diarrhea. She was evaluated in emergency room and was found to have atrial fibrillation with RVR and evidence of heart failure. She was admitted to [facility] for ongoing care needs. Initial orders were written by the emergency room physician. I saw her on November 17 and performed the history and physical. She was placed on Cardizem drip in emergency room. This was discontinued after a few hours and she was started on higher dose oral Cardizem. She was also given Lanoxin and higher dose metoprolol during hospitalization. Her ventricular rate slowed to an acceptable level. She will continue Cardizem and metoprolol at discharge. Lanoxin will not be continued. She was changed from Lasix to Bumex with decrease in her edema noted. Multiple attempts for venipuncture to follow up abnormal labs were unsuccessful. The patient refused to allow further venipuncture attempts. Social service consult was ordered. The patient admitted she felt she would benefit from therapy in SNF prior to attempting returned to the home environment for independent living. On November 20 arrangements were complete for her to be discharged to [facility] for ongoing care needs. - Time Spent with Patient Total time spent providing and/or coordinating discharge services: - Discharge Medications Prescriptions: New Bumetanide [Bumex] 1 mg PO DAILY tablet Diltiazem CD (24hr) [Cardizem CD] 120 mg PO DAILY 365 Days cap.er.24h Potassium Chloride 10 meq PO DAILY 365 Days tab.er.prt Metoprolol XL (24 HR) Succ [Toprol XL] 50 mg PO DAILY 365 Days tab.er.24h Continued Montelukast [Singulair] 10 mg PO HS Fluticasone Propionate Nasal [Flonase] 2 spr NS DAILY PRN PRN Reason: Allergic Reaction Estrogens,Esterified [Menest] 1.25 mg PO DAILY Discontinued Metoprolol [Lopressor] 25 mg PO HS Potassium Chloride 20 meq PO DAILY Lisinopril [Zestril] 2.5 mg PO DAILY #7 tablet Furosemide [Lasix] 10 mg PO DAILY Diltiazem CD (24hr) [Cardizem CD] 120 mg PO DAILY Home Medications: Fluticasone Propionate Nasal [Flonase] 2 spr NS DAILY PRN 10/06/18 [History] Montelukast [Singulair] 10 mg PO HS 10/06/18 [History] Estrogens,Esterified [Menest] 1.25 mg PO DAILY 11/17/18 [History] Bumetanide [Bumex] 1 mg PO DAILY tablet 11/20/18 [Rx] Diltiazem CD (24hr) [Cardizem CD] 120 mg PO DAILY 365 Days cap.er.24h 11/20/18 [Rx] Metoprolol XL (24 HR) Succ [Toprol XL] 50 mg PO DAILY 365 Days tab.er.24h 11/20/18 [Rx] Potassium Chloride 10 meq PO DAILY 365 Days tab.er.prt 11/20/18 [Rx] Allergies/Adverse Reactions: Allergy/AdvReac Type Severity Reaction Status Date / Time apixaban [From Eliquis] AdvReac BLEEDING Verified 10/06/18 14:10 aspirin AdvReac Nose Bleed Verified 10/05/18 19:42 NSAIDS (Non-Steroidal AdvReac Nose Bleed Verified 10/05/18 19:42 Anti-Inflamma Date of admission: 11/17/18 20:45 Primary care physician: Miranda Escobar Consults: 11/17/18 16:23 Consult to Dry Chain Worker [CONS] Stat Reason for SW Consult: discharge planning NH or respite call daughter [phone] (cindy) 11/19/18 12:10 Consult to Occupational Therapy [CONS] Routine Comment: Evaluate, develop and implement POC Reason for Consult: Weakness Does patient have active BEDREST order?: No Is patient medically & hemodynamically stable?: Yes Patient assessed for mobility or mobilized this visit?: Yes Consult to Physical Therapy [CONS] Routine Comment: Evaluate, develop and implement POC Reason for Consult: Weakness Does patient have active BEDREST order?: No Is patient medically & hemodynamically stable?: Yes Patient assessed for mobility or mobilized this visit?: Yes - Constitutional Vitals: Temp Pulse Resp BP Pulse Ox 98.1 F 64 22 109/61 93 11/20/18 06:46 11/20/18 06:46 11/20/18 06:46 11/20/18 06:46 11/20/18 06:46 - Patient Status Disposition: Transfer SNF Condition: Fair - Discharge Instructions - Diet and Activity Activity: as per physical therapy, wear oxygen at night Diet: low fat, low cholesterol
--- NOTE | 2018-11-20 09:25 | Physician Discharge Referral ---
ExtendedCare Referral Info Transfer To: [facility] Provider in Charge: Alex Provider in Charge after Transfer: PCP (Alex) - Diagnosis (1) Atrial fibrillation with RVR Priority: Primary Status: Acute (2) Heart failure with reduced ejection fraction and diastolic dysfunction Priority: Secondary Status: Acute (3) CKD (chronic kidney disease) stage 3, GFR 30-59 ml/min Priority: Secondary Status: Chronic (4) Atrial fibrillation Priority: Secondary Status: Chronic (5) Hypertension Priority: Secondary Status: Chronic (6) Weakness Priority: Secondary Status: Acute Prognosis: Good Aware of Diagnosis: Patient Aware of Prognosis: Patient - Transfer Medications Prescriptions: Diltiazem CD (24hr) [Cardizem CD] 120 mg PO DAILY 365 Days cap.er.24h Potassium Chloride 10 meq PO DAILY 365 Days tab.er.prt Metoprolol XL (24 HR) Succ [Toprol XL] 50 mg PO DAILY 365 Days tab.er.24h Home Medications: Fluticasone Propionate Nasal [Flonase] 2 spr NS DAILY PRN 10/06/18 [History] Montelukast [Singulair] 10 mg PO HS 10/06/18 [History] Estrogens,Esterified [Menest] 1.25 mg PO DAILY 11/17/18 [History] Bumetanide [Bumex] 1 mg PO DAILY tablet 11/20/18 [Rx] Diltiazem CD (24hr) [Cardizem CD] 120 mg PO DAILY 365 Days cap.er.24h 11/20/18 [Rx] Metoprolol XL (24 HR) Succ [Toprol XL] 50 mg PO DAILY 365 Days tab.er.24h 11/20/18 [Rx] Potassium Chloride 10 meq PO DAILY 365 Days tab.er.prt 11/20/18 [Rx] Allergies/Adverse Reactions: Allergy/AdvReac Type Severity Reaction Status Date / Time apixaban [From Eliquis] AdvReac BLEEDING Verified 10/06/18 14:10 aspirin AdvReac Nose Bleed Verified 10/05/18 19:42 NSAIDS (Non-Steroidal AdvReac Nose Bleed Verified 10/05/18 19:42 Anti-Inflamma - Respiratory Orders Oxygen / L per min (2 Liters per minute by nasal cannula at bedtime and when necessary during daytime to keep sat greater than 90%) Smoking Cessation: Smoking cessation has been advised. For more information, call the [place] Tobacco Quit Line at 2-780-XQLW-NOW. - Lab Orders Lab Orders: Other (include drug levels w/frequency) (BMP, BNP peptide, magnesium level in 1 week) - Advance Directives Code Status: Full Code - Mobility Orders Ambulate - Rehabiliation Orders Rehab Potential: Good Rehab Orders: Evaluation for Physical Therapy, Evaluation for Occupational Therapy - Diet Orders Cardiac CERTIFICATION: I certify that the transfer of the above named patient to an Extended Care Facility is necessary for the continuing treatment of the diagnosis listed. The above information is true and accurate reflection of patient's current condition. Confidential - Redisclosure prohibited without a patient's written consent.
[2018-11-21] MEDS ORDERED: *HR* Digoxin 0.125 MG TABLET PO SCH (09:00)
--- NOTE | 2018-11-22 12:35 | Electrocardiograph Report ---
[place] [id number] Test Date: 2018-11-17 Pat Name: Kirti Raymond Department: EDP-12 Room: [facility] Gender: F [employer]eder: : 1940 Requested By: Radha Gustafson Order Number: [id number] Reading MD: Kaden Rodas Measurements Intervals [place] Rate: 163 P: [place]: QRS: 133 QRSD: 76 T: 20 QT: 304 QTc: 501 Interpretive Statements Right and left arm electrode reversal, interpretation assumes no reversal Atrial fibrillation with rapid V-rate Right axis deviation Low voltage, precordial leads Electronically Signed On 11-22-2018 12:33:31 EDT by Kaden Rodas
== END 2018-11-20 10:45 | DRG 292 ==
LOC: EMEROOPIK 13:06 → INPPIK 13:06
PROVIDERS: ADMIT Internal Medicine; ATTEND Internal Medicine